=== PATIENT | female | born 1960 | race Caucasian/White ===

== ENCOUNTER → 2016-09-30 | Outpatient (CLI) | payer BC ==
--- NOTE | 2016-10-01 19:38 | Diagnostic Imaging Report ---
Bilateral screening mammogram The current study was also evaluated with a Computer Aided Detection (CAD) system. Indication: Screening. No current complaints stated on the questionnaire. COMPARISON: 04/30/11. FINDINGS: The breasts are composed of heterogeneously dense parenchyma which may decrease mammographic sensitivity. No mass, architectural distortion or suspicious cluster of calcification seen. Allowing for technique and positional differences, no suspicious change is seen. IMPRESSION: No significant change. ACR BI-RADS Category 2: Benign findings. Result letter will be mailed to the patient. Note: At least 10% of breast cancer is not imaged by mammography. Dictated by: Dictated on workstation # [id number]
== END ==
LOC: RAD 14:33
PROVIDERS: ATTEND Internal Medicine
DX: Z12.31 Encounter for screening mammogram for malignant neoplasm of breast (principal)
CPT/HCPCS: 77067

== ENCOUNTER 2019-05-02 15:56 | Inpatient (IN) | payer BC ==
[~2019-05-02] VITALS: Ht 162 cm; Wt 79.0 kg
[2019-05-02] VITALS (7 sets, daily range): BP systolic 129–166; BP diastolic 75–89
[2019-05-02] MEDS: NITROGLYCERIN 0.4 MG SL TABS BTL 25'S SL PRN ×2 (16:14→16:20)
[2019-05-02 16:18] LABS: BASOPHILS % (AUTO) 0 % (0-10); EOSINOPHILS # (AUTO) 0.2 10^3/uL (0.0-0.3); EOSINOPHILS % (AUTO) 2 % (0-10); HEMATOCRIT 42 % (35-52); HEMOGLOBIN 14.1 G/DL (11.5-16.0); LYMPHOCYTES # (AUTO) 1.8 X 10^3 (1.0-4.0); LYMPHOCYTES % (AUTO) 20 % (12-44); MEAN CORPUSCULAR HEMOGLOBIN 26 PG (25-34); MEAN CORPUSCULAR HGB CONC 34 G/DL (32-36); MEAN CORPUSCULAR VOLUME 79 FL (80-99); MEAN PLATELET VOLUME 9.9 FL (7.4-10.4); MONOCYTES # (AUTO) 0.6 X 10^3 (0.0-1.0); MONOCYTES % (AUTO) 6 % (0-12); NEUTROPHILS # (AUTO) 6.4 X 10^3 (1.8-7.8); NEUTROPHILS % (AUTO) 71 % (42-75); PLATELET COUNT 280 10^3/uL (130-400); RED CELL DISTRIBUTION WIDTH 13.7 % (10.0-14.5)
[2019-05-02] MEDS ORDERED: morphine INJ 10 MG/ML 1ML (SYR OR VIAL) IVP ONE (16:30)
[2019-05-02 16:36] LABS: ALANINE AMINOTRANSFERASE 19 U/L (0-55); ALBUMIN 4.7 GM/DL (3.2-4.5); ALKALINE PHOSPHATASE 104 U/L (40-136); BILIRUBIN,TOTAL 0.2 MG/DL (0.1-1.0); BUN/CREATININE RATIO 13; CARBON DIOXIDE 26 MMOL/L (21-32); CHLORIDE 104 MMOL/L (98-107); CREATININE SERUM 0.69 MG/DL (0.60-1.30); GFR ESTIMATED > 60; GLUCOSE 109 MG/DL (70-105); LIPASE 19 U/L (8-78); MAGNESIUM 1.8 MG/DL (1.6-2.4); POTASSIUM 3.5 MMOL/L (3.6-5.0); SODIUM 141 MMOL/L (135-145); TOTAL PROTEIN 7.8 GM/DL (6.4-8.2)
--- NOTE | 2019-05-02 16:36 | ED Chest Pain ---
General Chief Complaint: Chest Pain Stated Complaint: CHEST , ARM HURTING Nursing Triage Note: pt presents with cp that has been ongoing for 2-3 hours. pt states pain originates in L shoulder and radiates to the left arm and chest Nursing Sepsis Screen: No Definite Risk Source: patient Exam Limitations: no limitations History of Present Illness Date Seen by Provider: May 02, 2019 Time Seen by Provider: 15:57 Initial Comments With report of left sided chest pain that starts at the shoulder and radiates down the left arm and into the left chest. Onset about 2 hours prior to arrival. Denies nausea, vomiting, weakness, shortness of breath or sweating. Does have hypertension and notes that blood pressure is elevated currently. She states that she is not well controlled. Did have stress test that was okay four years ago or so. She did take 4 baby aspirin prior to arrival. 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 NTG SL BEEF FARMER: No Associated Symptoms: No abdominal pain, No back pain, No nausea/vomiting, No shortness of breath, No weakness Allergies and Home Medications Allergies Coded Allergies: No Known Drug Allergies (Unverified , 05/02/19) Patient Home Medication List Home Medication List Reviewed: Yes Review of Systems Review of Systems Constitutional: see HPI; No chills, No fever Respiratory: No Symptoms Reported Cardiovascular: See HPI, Chest Pain; Denies Lightheadedness, Denies Palpitations Gastrointestinal: Denies Diarrhea, Denies Nausea, Denies Vomiting Genitourinary: No Symptoms Reported Musculoskeletal: see HPI, muscle pain; No neck pain Skin: no symptoms reported Psychiatric/Neurological: Anxiety; Denies Headache All Other Systems Reviewed Negative Unless Noted: Yes Past Brblsev-Ssuxpy-Ibszsv Hx Past Med/Social Hx: Reviewed Nursing Past Med/Soc Hx Patient Social History Alcohol Use: Denies Use Recreational Drug Use: No Smoking Status: Never a Smoker Recent Foreign Travel: No Contact w/Someone Who Travel: No Recent Infectious Disease Expo: No Immunizations Up To Date Tetanus Booster (TDap): Unknown PED Vaccines UTD: Yes Past Medical History Surgeries: Yes Orthopedic, Tubal Ligation Respiratory: No Cardiac: Yes Hypertension Neurological: No : No Female Reproductive Disorders: 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 oz. kg; 30.00 BMI Method: General Appearance: No Apparent Distress, Anxious, Mild Distress HEENT: PERRL/EOMI, Pharynx Normal Neck: Non Tender, Supple Respiratory: Lungs Clear, Normal Breath Sounds Cardiovascular: No Murmur, Tachycardia Gastrointestinal: Non Tender, Soft Extremity: Normal Range of Motion, Non Tender Neurologic/Psychiatric: Alert, Oriented x3 Skin: Normal Color, Warm/Dry Progress/Results/Core Measures Results/Orders Lab Results Laboratory Tests Test 05/02/19 16:08 Range/Units White Blood Count 9.0 4.3-11.0 10^3/uL Red Blood Count 5.35 4.35-5.85 10^6/uL Hemoglobin 14.1 11.5-16.0 G/DL Hematocrit 42 35-52 % Mean Corpuscular Volume 79 L 80-99 FL Mean Corpuscular Hemoglobin 26 25-34 PG Mean Corpuscular Hemoglobin Concent 34 32-36 G/DL Red Cell Distribution Width 13.7 10.0-14.5 % Platelet Count 280 130-400 10^3/uL Mean Platelet Volume 9.9 7.4-10.4 FL Neutrophils (%) (Auto) 71 42-75 % Lymphocytes (%) (Auto) 20 12-44 % Monocytes (%) (Auto) 6 0-12 % Eosinophils (%) (Auto) 2 0-10 % Basophils (%) (Auto) 0 0-10 % Neutrophils # (Auto) 6.4 1.8-7.8 X 10^3 Lymphocytes # (Auto) 1.8 1.0-4.0 X 10^3 Monocytes # (Auto) 0.6 0.0-1.0 X 10^3 Eosinophils # (Auto) 0.2 0.0-0.3 10^3/uL Basophils # (Auto) 0.0 0.0-0.1 10^3/uL Prothrombin Time 12.5 12.2-14.7 SEC INR Comment 0.9 0.8-1.4 Activated Partial Thromboplast Time 26 24-35 SEC D-Dimer 0.31 0.00-0.49 UG/ML Sodium Level 141 135-145 MMOL/L Potassium Level 3.5 L 3.6-5.0 MMOL/L Chloride Level 104 98-107 MMOL/L Carbon Dioxide Level 26 21-32 MMOL/L Anion Gap 11 5-14 MMOL/L Blood Urea Nitrogen 9 7-18 MG/DL Creatinine 0.69 0.60-1.30 MG/DL Estimat Glomerular Filtration Rate > 60 BUN/Creatinine Ratio 13 Glucose Level 109 H 70-105 MG/DL Calcium Level 10.0 8.5-10.1 MG/DL Corrected Calcium 8.5-10.1 MG/DL Magnesium Level 1.8 1.6-2.4 MG/DL Total Bilirubin 0.2 0.1-1.0 MG/DL Aspartate Amino Transf (AST/SGOT) 17 5-34 U/L Alanine Aminotransferase (ALT/SGPT) 19 0-55 U/L Alkaline Phosphatase 104 40-136 U/L Myoglobin 166.0 H 10.0-92.0 NG/ML Troponin I 0.048 H <0.028 NG/ML Total Protein 7.8 6.4-8.2 GM/DL Albumin 4.7 H 3.2-4.5 GM/DL Lipase 19 8-78 U/L My Orders Orders - MEJIA NOGUERA MD Cbc With Automated Diff (05/02/19 16:08) Magnesium (05/02/19 16:08) Chest 1 View, Ap/Pa Only (05/02/19 16:08) Ekg Tracing (05/02/19 16:08) Comprehensive Metabolic Panel (05/02/19 16:08) Myoglobin Serum (05/02/19 16:08) Protime With Inr (05/02/19 16:08) Partial Thromboplastin Time (05/02/19 16:08) O2 (05/02/19 16:08) Monitor-Rhythm Ecg Trace Only (05/02/19 16:08) Lipid Panel (05/03/19 06:00) Ed Iv/Invasive Line Start (05/02/19 16:08) Lipase (05/02/19 16:08) Fibrin Degradation Products (05/02/19 16:08) Troponin I (05/02/19 16:08) Nitroglycerin 0.4 Mg Btl 25's (Nitrostat (05/02/19 16:15) Morphine Injection (Morphine Injection (05/02/19 16:30) Metoprolol Succinate (Xl) Tab (Toprol Xl (05/02/19 17:15) Ticagrelor Tablet (Brilinta Tablet) (05/02/19 17:15) Enoxaparin Injection (Lovenox Injection) (05/02/19 17:15) Nitroglycerin Ointment (Nitrobid Ointme (05/02/19 17:15) Medications Given in ED Current Medications Medications Dose Ordered Sig/Stephanie Route Start Time Stop Time Status Last Admin Dose Admin Enoxaparin Sodium 80 mg ONCE ONCE SC 05/02/19 17:15 05/02/19 17:16 DC 05/02/19 17:19 80 MG Nitroglycerin 0.4 mg UD PRN SL 05/02/19 16:15 05/02/19 16:20 0.4 MG Nitroglycerin 1 inch ONCE ONCE TOP 05/02/19 17:15 05/02/19 17:16 DC 05/02/19 17:19 1 INCH Ticagrelor 180 mg ONCE ONCE PO 05/02/19 17:15 05/02/19 17:16 DC 05/02/19 17:20 180 MG Vital Signs/I&O 05/02/19 05/02/19 15:57 15:57 Temp 36.9 Pulse 105 Resp 20 B/P (MAP) 196/96 (129) Pulse Ox 99 O2 Delivery Room Air Room Air Blood Pressure Mean: 129 Progress Progress Note : Progress Note Seen and evaluated. IV, labs, EKG and chest x-ray ordered. ASA held that she took that at home. After sublingual ordered. Morphine 2 mg IV ordered if needed. Monitor patient. 1710: Patient's troponin was slightly elevated as well as her myoglobin. Given her family history and hypertension, admission is indicated. Currently findings of non-ST elevation NH. I did discuss the case with Dr. Gaviria who accepts her for admission, inpatient status. I did discuss the case with Dr. Lozano. He is requesting Brilinta 180 mg by mouth now and 90 mg twice a day. We will initiate metoprolol 50 mg by mouth of the XL version. We will initiate Nitropaste 1 inch to chest wall continue every 6 hours. 2-D cardiac echo in the a.m. Nothing by mouth after midnight. I did discuss all the findings concerns with patient and family who agree with plan. Admit, inpatient status. Initial ECG Impression Date: May 02, 2019 Initial ECG Impression Time: 15:57 Initial ECG Rate: 99 Initial ECG Rhythm: S.Tach Comment Sinus with left ventricular hypertrophy and left atrial abnormality. No evidence of ST elevation NH. No previous available for comparison. Interpreted by me. Diagnostic Imaging Diagonstic Imaging: Xray Plain Films/CT/US/NM/MRI: chest Comments [facility], [place] NAME: VINAY GAMEZ [facility] REC#: [id number] PT STATUS: REG ER : 1960 PHYSICIAN: MEJIA NOGUERA MD ADMIT DATE: 05/02/19/ER Signed Date of Exam:05/02/19 CHEST 1 VIEW, AP/PA ONLY EXAMINATION: Chest 1 view HISTORY: Chest pain COMPARISON: None available. FINDINGS: The lungs are clear without edema or pneumonia. No pleural effusion or pneumothorax. Heart size is normal. IMPRESSION: 1. Clear lungs. Dictated by: Dictated on workstation # [id number] Dict: 05/02/19 1640 Trans: 05/02/19 1641 [facility] [id number] Interpreted by: PRANAY FORMAN MD Electronically signed by: PRANAY FORMAN MD 05/02/19 1641 Departure Communication (Admissions) Time/Spoke to Admitting Phy: 17:06 Time/Spoke to Consulting Phy: 17:10 Impression Primary Impression: NSTEMI (non-ST elevated myocardial infarction) Additional Impression: Chest pain Qualified Codes: R07.9 - Chest pain, unspecified Disposition: ADMITTED INPATIENT Condition: Stable Admissions Decision to Admit Reason: Admit from ER (General) Decision to Admit/Date: May 02, 2019 Time/Decision to Admit Time: 17:06 Departure-Patient Inst. Referrals: URBANO VERGARA MD (PCP/Family) Primary Care Physician MEJIA NOGUERA MD May 02, 2019 16:36
[2019-05-02 16:37] LABS: INR 0.9 (0.8-1.4); PROTHROMBIN TIME PATIENT 12.5 SEC (12.2-14.7)
--- NOTE | 2019-05-02 16:42 | Diagnostic Imaging Report ---
EXAMINATION: Chest 1 view HISTORY: Chest pain COMPARISON: None available. FINDINGS: The lungs are clear without edema or pneumonia. No pleural effusion or pneumothorax. Heart size is normal. IMPRESSION: 1. Clear lungs. Dictated by: Dictated on workstation # [id number]
[2019-05-02] MEDS ORDERED: ENOXAPARIN 80 MG/0.8 ML (LOVENOX) SYR SC ONE (17:15)
[2019-05-02] MEDS ORDERED: TICAGRELOR 90 MG TABLET (BRILINTA) PO ONE (17:15)
[2019-05-02] MEDS ORDERED: meTOproloL SUCCINATE 50 MG (TOPROL XL) TAB PO SCH (17:15)
[2019-05-02] MEDS ORDERED: NITROGLYCERIN 2% OINT 1 GM UNIT DOSE PACKET TOP ONE (17:15)
[2019-05-02] MEDS ORDERED: morphine INJ 4 MG/ML 1 ML (VIAL/SYRINGE) IV PRN (18:30)
[2019-05-02] MEDS ORDERED: CATHETER FLUSH 10 ML SYR IV PRN (18:30)
[2019-05-02] MEDS ORDERED: NITROGLYCERIN 0.4 MG SL TABS BTL 25'S SL PRN (18:30)
[2019-05-02] MEDS ORDERED: ONDANSETRON 4 MG/2 ML (SDV) Z0FRAN IV PRN ×2 (18:30)
[2019-05-02] MEDS: LACTATED RINGERS 1,000 ML IV SCH (19:21)
[2019-05-02] MEDS ORDERED: FLU QUADRIvalent (5+ YOA) 2019-2020 (AFLURIA) 0.5 ML IM ONE (19:30)
[2019-05-02] MEDS ORDERED: NITROGLYCERIN 2% OINT 1 GM UNIT DOSE PACKET ONE (20:49)
[2019-05-02] MEDS: TICAGRELOR 90 MG TABLET (BRILINTA) PO SCH (20:57)
[2019-05-03] VITALS (12 sets, daily range): BP systolic 134–174; BP diastolic 69–92
[2019-05-03] MEDS: NITROGLYCERIN 2% OINT 1 GM UNIT DOSE PACKET TOP SCH ×3 (00:05→12:00)
[2019-05-03 00:30] LABS: BASOPHILS % (AUTO) 0 % (0-10); EOSINOPHILS # (AUTO) 0.3 10^3/uL (0.0-0.3); EOSINOPHILS % (AUTO) 4 % (0-10); HEMATOCRIT 38 % (35-52); HEMOGLOBIN 12.5 G/DL (11.5-16.0); LYMPHOCYTES % (AUTO) 27 % (12-44); MEAN CORPUSCULAR HEMOGLOBIN 26 PG (25-34); MEAN CORPUSCULAR HGB CONC 33 G/DL (32-36); MEAN CORPUSCULAR VOLUME 79 FL (80-99); MEAN PLATELET VOLUME 9.9 FL (7.4-10.4); MONOCYTES # (AUTO) 0.5 X 10^3 (0.0-1.0); MONOCYTES % (AUTO) 7 % (0-12); NEUTROPHILS # (AUTO) 4.5 X 10^3 (1.8-7.8); NEUTROPHILS % (AUTO) 62 % (42-75); PLATELET COUNT 257 10^3/uL (130-400); RED CELL DISTRIBUTION WIDTH 13.7 % (10.0-14.5); WHITE BLOOD COUNT 7.2 10^3/uL (4.3-11.0)
[2019-05-03 01:02] LABS: ALANINE AMINOTRANSFERASE 16 U/L (0-55); ALBUMIN 3.8 GM/DL (3.2-4.5); ALKALINE PHOSPHATASE 93 U/L (40-136); BILIRUBIN,TOTAL 0.4 MG/DL (0.1-1.0); BUN/CREATININE RATIO 14; CALCIUM 9.1 MG/DL (8.5-10.1); CARBON DIOXIDE 24 MMOL/L (21-32); CHLORIDE 105 MMOL/L (98-107); CHOLESTEROL 184 MG/DL (< 200); CREATININE SERUM 0.65 MG/DL (0.60-1.30); GFR ESTIMATED > 60; GLUCOSE 137 MG/DL (70-105); HDL CHOLESTEROL 46 MG/DL (40-60); POTASSIUM 3.2 MMOL/L (3.6-5.0); SODIUM 138 MMOL/L (135-145); TOTAL PROTEIN 6.3 GM/DL (6.4-8.2); TRIGLYCERIDES 191 MG/DL (<150); VLDL CHOLESTEROL 38 MG/DL (5-40)
--- NOTE | 2019-05-03 01:51 | NUR ---
ATTEMPTED CONTACTING DR. CRUZ AT 0139, 0140, AND 0141 WITH NO RESPONSE. WILL CONTINUE TRYING TO CONTACT HIM TO REPORT CRITICAL LAB VALUE OF TROPONIN.
[2019-05-03] MEDS: LACTATED RINGERS 1,000 ML IV SCH ×3 (04:15→16:15)
--- NOTE | 2019-05-03 05:18 | NUR ---
DR. CRUZ NOTIFIED OF PT'S TROPONIN LAB AT 0306 - NO NEW ORDERS
[2019-05-03] MEDS ORDERED: HEParin (CATH LAB) 2,000 ML IV ONE (08:03)
[2019-05-03] MEDS ORDERED: LIDOCAINE 1% INJ 20 ML 20 ML VIAL ONE (08:03)
[2019-05-03] MEDS: TICAGRELOR 90 MG TABLET (BRILINTA) PO SCH ×2 (08:40→20:24)
[2019-05-03] MEDS ORDERED: HYDROcodone/APAP 5 MG/325 MG (LORTAB) TAB PO PRN (08:45)
[2019-05-03] MEDS ORDERED: ASPIRIN E.C. 81 MG (ECOTRIN) TAB PO SCH (09:00)
[2019-05-03] MEDS ORDERED: ASPI-983 PO (10:41)
[2019-05-03] MEDS ORDERED: NF-LT10/20 PO (10:41)
--- NOTE | 2019-05-03 10:42 | NUR ---
SPOKE WITH THE PATIENT ABOUT HER MEDICATIONS. SHE LISTED HER MEDS. I COMPARED WITH THE EXT MED HX AND CALLED [facility] TO VERIFY THE AMLODIPINE BENAZEPRIL 10-20 HAS NOT BEEN FILLED SINCE 12-07-18 #90. WHEN I ASKED HER ABOUT THIS SHE STATES SHE IS GETTING LOW BUT SHE DOES NOT FEEL SHE MISSES THIS OFTEN. I NOTED THE PAST DUE FILL DATE ON THE MED REC. SHE TAKES ASPIRIN 81MG DAILY OTC.
--- NOTE | 2019-05-03 10:59 | NUR ---
Pt is Bahai. Technical Analyst provided prayer and Communion.
[2019-05-03] MEDS ORDERED: MIDAZOLAM 5 MG/5 ML (VERSED) VIAL ONE (11:15)
[2019-05-03] MEDS ORDERED: fentaNYL INJECTION 100 MCG/2 ML AMP ONE (11:16)
[2019-05-03] MEDS ORDERED: NITRO DRIP 25000 MCG/D5W 250 ML IV ONE (11:16)
[2019-05-03] MEDS ORDERED: VERAPAMIL 5 MG/2 ML (CALAN) VIAL IV ONE (11:16)
[2019-05-03] MEDS ORDERED: HEParin 1000 UNIT/ML (10ML VIAL) FOR BOLUS ONE (11:16)
[2019-05-03] MEDS ORDERED: NS IV 1000 ML 1,000 ML ONE (11:37)
[2019-05-03] MEDS ORDERED: ADENOSINE 3 MG/1 ML (ADENOSCAN) 30ML VIAL IV ONE (12:01)
[2019-05-03] MEDS ORDERED: PATIENT MAY USE OWN MEDS, ALL PO SCH (13:00)
--- NOTE | 2019-05-03 13:00 | Cardiac Procedure Note-CS/ASA ---
Pre-Procedure Note Pre-Op Procedure Note H&P Reviewed The H&P was reviewed, patient examined and no changes noted. Date H&P Reviewed: May 03, 2019 Time H&P Reviewed: 11:00 Conscious Sedation Pre-Proced Time 11:00 ASA Score 3 For ASA 3 and 4: Consider anesthesia and medical clearance. Also, for patients with a history of failed moderate sedation consider anesthesia. Airway Lungs Heart ASA score ASA 1: a normal healthy patient ASA 2: a patient with a mild systemic disease (mid diabetes, controlled hypertension, obesity ASA 3: a patient with a severe systemic disease that limits activity (angina, COPD, prior Myocardial infarction) ASA 4: a patient with an incapacitating disease that is a constant threat to life (CHF, renal failure) ASA 5: a moribund patient not expected to survive 24 hrs. (ruptured aneurysm) ASA 6: a declared brain- patient whose organs are being harvested. For emergent operations, add the letter E after the classification Mallampati Classification Grade 1 Sedation Plan Analgesia, Amnesia, Plan communicated to team members, Discussed options with patient/fam, Discussed risks with patient/fam The patient is an appropriate candidate to undergo the planned procedure, sedation, and anesthesia. The patient immediately re-assessed prior to indication. Hoa CRUZ MD May 03, 2019 13:00
--- NOTE | 2019-05-03 13:00 | Consultation-Cardiology ---
HPI-Cardiology Cardiology Consultation: Date of Consultation 05/03/19 Date of Admission Attending Physician Jayla Gaviria MD Admitting Physician Garry Salmeron MD Consulting Physician Hoa LOZANO MD HPI: Time Seen by a Provider: 08:45 Chief Complaint: Chest pain This is a 58-year-old lady with history of hypertension. She denies active smoking. She has family history of premature CAD. She presented to the ER with complains of chest pain radiating to the left arm. Moderate to severe intensity. No associated cardiac symptoms. Substernal. Tightness, pressure. Resolved with nitroglycerin. No exacerbating factors. No other medical issues. Review of Systems-Cardiology Review of Systems Constitutional: As described under HPI; No As described under HPI, No no symptoms reported, No chills, No fever, No lightheadedness Eyes: No As described under HPI, No no symptoms reported, No blindness, No blurred vision, No contact lenses, No drainage, No decreased acuity, No foreign body sensation, No pain, No vision change Ears/Nose/Throat: No As described under HPI, No no symptoms reported, No chronic hearing loss, No ear discharge, No ear pain, No nasal drainage, No ulcerations Respiratory: No no symptoms reported; As described under HPI; No As described under HPI, No cough, No orthopnea, No shortness of breath, No SOB with excertion Cardiovascular: No no symptoms reported; As described under HPI; No As described under HPI; chest pain; No edema, No irregular heart rate, No lightheadedness, No palpitations Gastrointestinal: No no symptoms reported, No As described under HPI, No abdomen distended, No abdominal pain, No blood streaked bowels, No constipation, No diarrhea, No nausea, No vomiting, No stool coloration changes Genitourinary: No As described under HPI, No burning, No dysuria, No discharge, No frequency, No flank pain, No hematuria, No urgency : Yes : No Skin: No rash, No skin related problems, No ulcerations Psychiatric/Neurological: No anxiety, No depression, No seizure, No focal weakness, No syncope Hematologic: No bleeding abnormalities All Other Systems Reviewed Negative Unless Noted: Yes HDY-Jsoxyq-Iusobn Hx Patient Social History Alcohol Use: Denies Use Recreational Drug Use: No Smoking Status: Never a Smoker Recent Foreign Travel: No Recent Infectious Disease Expo: No Hospitalization with Isolation: Denies Immunizations Up To Date Tetanus Booster (TDap): Unknown Past Medical History PMH As described under Assessment. Allergies and Home Medications Allergies Coded Allergies: No Known Drug Allergies (Unverified , 05/02/19) Home Medications Amlodipine/Benazepril 1 Cap Cap, 1 CAP PO DAILY, (Reported) LAST FILLED #90 9-4-19 Aspirin 81 Mg Tablet.dr, 81 MG PO DAILY, (Reported) Patient Home Medication List Home Medication List Reviewed: Yes Physical Exam-Cardiology Physical Exam Vital Signs/I&O 05/03/19 05/03/19 05/03/19 05/03/19 06:40 07:53 08:00 13:30 Pulse 69 72 73 Resp 14 11 B/P (MAP) 156/81 (106) 150/77 (101) Pulse Ox 100 100 98 O2 Delivery Room Air Room Air Room Air 05/03/19 00:00 Intake Total 300 ml Balance 300 ml Capillary Refill : Less Than 3 Seconds Constitutional: appears stated age, AAO x 3; No apparent distress; well- developed, well-nourished HEENT: PERRL; No discharge; hearing is well preserved, oral hygience is good; No ulceration, No xanthelasmas are seen Neck: No carotid bruit; carotid pulses are 2 + bilaterally Respiratory: chest is bilaterally symmetric, lungs clear to auscultation Cardiovascular: regular rate-rhythm, S1 and S2 Gastrointestinal: soft, audible bowel sounds; No spleenomegaly Rectal: deferred Extremities: normal range of motion, non-tender, normal inspection; No clubbing, No cyanosis; no lower extremity edema bilateral; No significant edema Neurologic/Psychiatric: no motor/sensory deficits, alert, normal mood/affect, oriented x 3, power is 5/5 both on sides Skin: normal color; No rash, No ulcerations Data Review Labs Laboratory Tests 05/02/19 16:08: White Blood Count 9.0, Red Blood Count 5.35, Hemoglobin 14.1, Hematocrit 42, Mean Corpuscular Volume 79L, Mean Corpuscular Hemoglobin 26, Mean Corpuscular Hemoglobin Concent 34, Red Cell Distribution Width 13.7, Platelet Count 280, Mean Platelet Volume 9.9, Neutrophils (%) (Auto) 71, Lymphocytes (%) (Auto) 20, Monocytes (%) (Auto) 6, Eosinophils (%) (Auto) 2, Basophils (%) (Auto) 0, Neutrophils # (Auto) 6.4, Lymphocytes # (Auto) 1.8, Monocytes # (Auto) 0.6, Eosinophils # (Auto) 0.2, Basophils # (Auto) 0.0, Prothrombin Time 12.5, INR Comment 0.9, Activated Partial Thromboplast Time 26, D-Dimer 0.31, Sodium Level 141, Potassium Level 3.5L, Chloride Level 104, Carbon Dioxide Level 26, Anion Gap 11, Blood Urea Nitrogen 9, Creatinine 0.69, Estimat Glomerular Filtration Rate > 60, BUN/Creatinine Ratio 13, Glucose Level 109H, Calcium Level 10.0, Corrected Calcium , Magnesium Level 1.8, Total Bilirubin 0.2, Aspartate Amino Transf (AST/SGOT) 17, Alanine Aminotransferase (ALT/SGPT) 19, Alkaline Phosphatase 104, Myoglobin 166.0H, Troponin I 0.048H, Total Protein 7.8, Albumin 4.7H, Lipase 19 05/02/19 18:53: Troponin I 1.317*H 05/03/19 00:20: White Blood Count 7.2, Red Blood Count 4.75, Hemoglobin 12.5, Hematocrit 38, Mean Corpuscular Volume 79L, Mean Corpuscular Hemoglobin 26, Mean Corpuscular Hemoglobin Concent 33, Red Cell Distribution Width 13.7, Platelet Count 257, Mean Platelet Volume 9.9, Neutrophils (%) (Auto) 62, Lymphocytes (%) (Auto) 27, Monocytes (%) (Auto) 7, Eosinophils (%) (Auto) 4, Basophils (%) (Auto) 0, Neutrophils # (Auto) 4.5, Lymphocytes # (Auto) 2.0, Monocytes # (Auto) 0.5, Eosinophils # (Auto) 0.3, Basophils # (Auto) 0.0, Sodium Level 138, Potassium Level 3.2L, Chloride Level 105, Carbon Dioxide Level 24, Anion Gap 9, Blood Urea Nitrogen 9, Creatinine 0.65, Estimat Glomerular Filtration Rate > 60, BUN/Creatinine Ratio 14, Glucose Level 137H, Calcium Level 9.1, Corrected Calcium 9.3, Total Bilirubin 0.4, Aspartate Amino Transf (AST/SGOT) 34, Alanine Aminotransferase (ALT/SGPT) 16, Alkaline Phosphatase 93, Troponin I 4.157*H, Total Protein 6.3L, Albumin 3.8, Triglycerides Level 191H, Cholesterol Level 184, LDL Cholesterol Direct 129, VLDL Cholesterol 38, HDL Cholesterol 46 ECG Impression ECG Initial ECG Rhythm: Normal Sinus Comment T-wave inversions noted in V5 and V6. A/P-Cardiology Assessment/Admission Diagnosis Non-STEMI, Hypertension Plan Non-STEMI, positive cardiac enzymes. EKG shows sinus rhythm with some T-wave inversions. Echocardiogram. Aspirin, Brilinta bolus given in the ER. Lovenox dose given in the ER. I discussed at length with the patient and recommended coronary angiography. 1-2 percent of serious complications. Informed consent w as taken. We will perform coronary angiography today. Hypertension: Will require DEBBIE inhibitor and beta venita. Thank you for your consultation. Please call me if you have any questions. Travon Lozano MD, FACP, FACC, FSCAI, FHRS, CCDS Interventional Cardiology Cardiac Electrophysiology Vascular Medicine and Endovascular Interventions Clinical Quality Measures AMI/AHF: ASA po Prior to arrival: Yes DVT/VTE Risk/Contraindication: Risk Factor Score Per Nursin RFS Level Per Nursing on Admit: 1=Low/No VTE PPX Hoa LOZANO MD May 03, 2019 13:00
--- NOTE | 2019-05-03 13:00 | Coronary Angiography & PCI ---
Coronary Angiography & PCI DATE OF PROCEDURE: 05/03/19 INDICATION: Non-STEMI. PREOPERATIVE DIAGNOSIS: Non-STEMI. POSTOPERATIVE DIAGNOSIS: Severe two-vessel CAD. Successful PCI to the LAD and OM1. HISTORY: This is a 58-year-old lady with non-STEMI. Therefore, the patient was scheduled for coronary angiography. PROCEDURES PERFORMED: 1.Coronary angiography. 2.Left heart catheterization. 3.FFR to the LAD. 4. PCI to the LAD with drug-eluting stent. 5. PCI to OM1 with drug-eluting stent. COMPLICATIONS: None. SPECIMENS: None. ESTIMATED BLOOD LOSS: 10 mL ANESTHESIA: Conscious sedation ANTICOAGULATION: IV heparin CONTRAST: 135 mL. FLUOROSCOPY: 15.1 minutes. FLOUROSCOPY DOSE: 691 mgy. PROCEDURE DETAILS: The patient is a 58 female and was brought to the yard laborer after informed consent was taken. All the risks and complications were explained in detail; this included the risk of bleeding, vascular damage, stroke, MO and even . The patient was draped and prepped in the usual sterile fashion. Access was gained in the right radial artery with a 6 [place] sheath. Coronary angiography and left heart catheterization was performed with the Roebling catheter. FINDINGS: 1.Left main: Patent. 2.LAD: Moderate to severe long stenosis in the mid LAD. 3.Left circumflex artery: Severe long stenosis in the proximal midsegment of OM1. 4.RCA: Patent. 5.Left heart catheterization: LV pressure 150/6 mmHg. LVEDP 15 mmHg. Aortic pressure 126/26 mmHg. No significant gradient across the aortic valve. Normal LV function with no wall motion abnormality. RECOMMENDATIONS: FFR to the LAD is recommended. PCI to the LAD is recommended. PCI to the OM1 is recommended. INTERVENTION DETAILS: EBU 3.5 guide catheter, FFR guidewire, IV heparin for anticoagulation. 8000 units of heparin was given. Patient was given bolus Brilinta and aspirin. The lesion in the mid LAD was crossed with a FFR wire. Baseline FFR was 0.94. Adenosine was started at 140 g per KG per minute. Lowest FFR was 0.80 which is significant therefore PCI is recommended. We took a Xience Quita 2.75 x 33 mm drug-eluting stent and placed it at 14 ny for 21 seconds. Postdilatation with the same stent balloon after pulling in the proximal and mid segment was done at 20 ny for 13 seconds. Postdilatation with an C Quantum 3.5 x 1 2 mm in the midsegment at 14 ny for 11 seconds and in the proximal segment at 18 ny for 8 seconds. Excellent results with STEVEN 3 flow and no residue stenosis. The same FFR wire was then advanced into the OM1 vessel. The tip of the wire was placed in the distal OM1. Direct stenting with a Xience Quita 3 x 38 mm stent at 16 ny for 7 seconds. Postdilatation with an NC Quantum 3.5 x 20 mm at 18 ny for 8 seconds in the midsegment. 2 inflations in the proximal segment at 20 ny for 6 seconds and 20 ny for 5 seconds. Excellent results with no residual stenosis and STEVEN-3 flow. Patient tolerated procedure well did not have any complication. CONCLUSIONS: 1. Severe two-vessel CAD, status post drug-eluting stents to the mid LAD and OM 1 artery. 2. Dual antiplatelet therapy for at least 1 year. 3. Aggressive secondary prevention measures. Travon Lozano MD, FACP, FACC, [facility] Interventional Cardiology Hoa LOZANO MD May 03, 2019 13:00
--- NOTE | 2019-05-03 13:41 | History & Physical-Hospitalist ---
History of Present Illness HPI/Chief Complaint he should've a 58-year-old female with past medical history of poorly controlled hypertension who presented to the emergency department due to chest pain. She states she was walking her grandchild when she developed left arm pain. She thought it was due to muscle strain but it continued to worsen and she developed chest pain and back pain. When her daughter arrived at the house she relayed this concerns to her and then decided to seek care in the ER. She denies any shortness of breath. She was given Nitro which helped resolve her symptoms. She was found to have an elevated troponin at 0.04 and was admitted for an NSTEMI. Date Seen 05/03/19 Time Seen by a Provider: 07:55 Attending Physician Jayla Hansen MD PCP Garry Salmeron MD Referring Physician Date of Admission May 02, 2019 at 17:17 Home Medications & Allergies Home Medications Reviewed patient Home Medication Reconciliation performed by pharmacy medication reconciliations optics manufacturing technician and/or nursing. Patients Allergies have been reviewed. Allergies Allergies Coded Allergies No Known Drug Allergies (Unverified05/02/19) Past Shgcdbj-Tqhkzz-Akgnxl Hx Past Med/Social Hx: Reviewed Nursing Past Med/Soc Hx Patient Social History Marrital Status: Alcohol Use: Denies Use Recreational Drug Use: No Smoking Status: Never a Smoker Recent Foreign Travel: No Contact w/other who traveled: No Recent Infectious Disease Expo: No Immunizations Up To Date Tetanus Booster (TDap): Unknown Pediatric: Yes Past Medical History Surgeries: Section, Orthopedic, Tubal Ligation Cardiac: Hypertension : No Female Reproductive Disorders: Menstrual Problems Tubal Ligation Cancer: Skin Psychosocial: Anxiety History of Blood Disorders: No Adverse Reaction to Blood Akhtar: No Family History Reviewed Nursing Family Hx Heart Disease, CAD Over 55 Years Old, Hypertension Review of Systems Constitutional: No chills, No fever EENTM: no symptoms reported Respiratory: No dyspnea on exertion, No short of breath Cardiovascular: see HPI, chest pain Gastrointestinal: no symptoms reported Genitourinary: no symptoms reported Musculoskeletal: no symptoms reported Skin: no symptoms reported Psychiatric/Neurological: No Symptoms Reported Physical Exam Physical Exam Vital Signs Vital Signs - First Documented 05/02/19 15:57 Temp 36.9 Pulse 105 Resp 20 B/P (MAP) 196/96 (129) Pulse Ox 99 O2 Delivery Room Air Capillary Refill : Less Than 3 Seconds Height, Weight, BMI Height: '" Weight: lbs. oz. kg; 30.00 BMI Method: General Appearance: No Apparent Distress, WD/WN HEENT: Moist Mucous Membranes; No Scleral Icterus (L), No Scleral Icterus (R) Neck: Normal Inspection, Supple Respiratory: Lungs Clear, No Respiratory Distress Cardiovascular: Regular Rate, Rhythm, No Murmur Gastrointestinal: Normal Bowel Sounds, Non Tender, Soft Extremity: No Calf Tenderness, No Pedal Edema Neurologic/Psychiatric: Alert, Oriented x3, Normal Mood/Affect Skin: Normal Color, Warm/Dry Results Results/Procedures Labs Laboratory Tests 05/02/19 16:08 05/03/19 00:20 Patient resulted labs reviewed. Imaging: Reviewed Imaging Report Imaging CHEST 1 VIEW, AP/PA ONLY EXAMINATION: Chest 1 view HISTORY: Chest pain COMPARISON: None available. FINDINGS: The lungs are clear without edema or pneumonia. No pleural effusion or pneumothorax. Heart size is normal. IMPRESSION: 1. Clear lungs. Assessment/Plan Admission Diagnosis NSTEMI Admission Status: Inpatient Order (span 2 midnights) Reason for Inpatient Admission: NSTEMI, needs cath and further cardiac work up Assessment and Plan NSTEMI HTN Improved with nitro Occurred at rest Concerning for unstable angina troponin elevated overnight Plan for cardiac cath today Cardiology consulted, appreciate recs Hypokalemia Replace per protocol Diagnosis/Problems Diagnosis/Problems (1) Unstable angina Status: Acute (2) NSTEMI (non-ST elevated myocardial infarction) Status: Acute (3) Chest pain Status: Acute Qualifiers: Chest pain type: unspecified Qualified Codes: R07.9 - Chest pain, unspecified Clinical Quality Measures AMI/AHF: ASA po Prior to arrival: Yes DVT/VTE Risk/Contraindication: Risk Factor Score Per Nursin RFS Level Per Nursing on Admit: 1=Low/No VTE PPX JAYLA HANSEN MD May 03, 2019 13:41
[2019-05-03] MEDS: NS IV 1000 ML 1,000 ML IV SCH ×2 (15:35→23:11)
[2019-05-03] MEDS: meTOproloL SUCCINATE 50 MG (TOPROL XL) TAB PO SCH (15:40)
[2019-05-04] VITALS: BP 154/91
[2019-05-04 04:08] LABS: HEMOGLOBIN 13.7 G/DL (11.5-16.0); RED CELL DISTRIBUTION WIDTH 13.4 % (10.0-14.5); WHITE BLOOD COUNT 7.6 10^3/uL (4.3-11.0)
[2019-05-04 04:20] VITALS: BP 151/85
[2019-05-04 04:53] LABS: BUN/CREATININE RATIO 14; CALCIUM 9.5 MG/DL (8.5-10.1); CARBON DIOXIDE 20 MMOL/L (21-32); CHLORIDE 105 MMOL/L (98-107); CREATININE SERUM 0.65 MG/DL (0.60-1.30); GFR ESTIMATED > 60; GLUCOSE 109 MG/DL (70-105); MAGNESIUM 1.9 MG/DL (1.6-2.4); PHOSPHORUS 3.8 MG/DL (2.3-4.7); POTASSIUM 3.9 MMOL/L (3.6-5.0); SODIUM 137 MMOL/L (135-145)
[2019-05-04] MEDS ORDERED: MAGNESIUM 1 GM/100 ML IVPB 100 ML IV SCH (06:00)
[2019-05-04] MEDS ORDERED: POTASSIUM CL 10MEQ/50ML IVPB 50 ML IV SCH ×2 (06:00)
[2019-05-04] MEDS ORDERED: KCL 20 MEQ TAB (K-DUR) PO SCH ×2 (06:00)
[2019-05-04 08:00] VITALS: BP 140/79
--- NOTE | 2019-05-04 08:57 | Discharge Summary ---
Diagnosis/Chief Complaint Date of Admission May 02, 2019 at 17:17 Date of Discharge Admission Diagnosis NSTEMI Primary Care Edson Heck MD Discharge Diagnosis (1) Unstable angina Status: Acute (2) NSTEMI (non-ST elevated myocardial infarction) Status: Acute (3) Chest pain Status: Acute Discharge Summary Procedures/Consulations Dr. Lozano - etiology Discharge Physical Exam Allergies: Coded Allergies: No Known Drug Allergies (Unverified , 05/02/19) Vitals & I&Os Vital Signs Date Time Temp Pulse Resp B/P (MAP) Pulse Ox O2 Delivery O2 Flow Rate FiO2 05/04/19 12:33 36.1 05/04/19 08:00 82 140/79 (99) Room Air 05/04/19 04:20 18 96 General Appearance: No Apparent Distress, WD/WN Respiratory: Lungs Clear, No Respiratory Distress Cardiovascular: Regular Rate, Rhythm, No Murmur Gastrointestinal: Normal Bowel Sounds, Soft Neurologic/Psychiatric: Alert, Oriented x3 Hospital Course Patient was admitted due to chest pain and elevated troponin. She was found to have in STEMI with a rise in her troponin up to 4. She underwent emergent cardiac catheter which revealed a lesion in the OM1 and LAD with successful PCI and stent placement. She was started on dual antiplatelets therapy. Her symptoms resolved and she was discharged home in stable condition. She is follow-up with her primary care physician Dr. Heck in the next week and with Dr. Lozano in the next 2 weeks. Labs (last 24 hrs) Laboratory Tests 05/04/19 03:50: White Blood Count 7.6, Red Blood Count 5.22, Hemoglobin 13.7, Hematocrit 42, Mean Corpuscular Volume 80, Mean Corpuscular Hemoglobin 26, Mean Corpuscular Hemoglobin Concent 33, Red Cell Distribution Width 13.4, Platelet Count 253, Mean Platelet Volume 10.0, Sodium Level 137, Potassium Level 3.9, Chloride Level 105, Carbon Dioxide Level 20L, Anion Gap 12, Blood Urea Nitrogen 9, Creatinine 0.65, Estimat Glomerular Filtration Rate > 60, BUN/Creatinine Ratio 14, Glucose Level 109H, Calcium Level 9.5, Phosphorus Level 3.8, Magnesium Level 1.9 Patient resulted labs reviewed. Pending Labs Imaging: Reviewed Imaging Report Discussion & Recommendations Discharge Planning: <30 minutes discharge planning Discharge Home Medications: Active Scripts Active Lisinopril 20 Mg Tablet 20 Mg PO DAILY Brilinta (Ticagrelor) 90 Mg Tablet 90 Mg PO BID Atorvastatin Calcium 80 Mg Tablet 80 Mg PO HS Metoprolol Succinate 50 Mg Tab.er.24h 50 Mg PO DAILY Reported Aspirin EC (Aspirin) 81 Mg Tablet.dr 81 Mg PO DAILY Instructions to patient/family Please see electronic discharge instructions given to patient. Clinical Quality Measures AMI/AHF: ASA po Prior to arrival: Yes DVT/VTE Risk/Contraindication: Risk Factor Score Per Nursin RFS Level Per Nursing on Admit: 1=Low/No VTE PPX Copy Copies To 1: EDSON HECK MD Problem Qualifiers (1) Chest pain: Chest pain type: unspecified Qualified Codes: R07.9 - Chest pain, unspecified DANIELLE HANSEN MD May 04, 2019 08:57
[2019-05-04] MEDS ORDERED: ASPIRIN E.C. 81 MG (ECOTRIN) TAB PO SCH (09:00)
[2019-05-04] MEDS ORDERED: lisINopril 40 MG (PRINIVIL) TABLET PO SCH (09:00)
[2019-05-04] MEDS ORDERED: LISI-552 PO (09:04)
[2019-05-04] MEDS ORDERED: METO50TA7 PO (09:04)
[2019-05-04] MEDS ORDERED: TICA90TA PO (09:04)
[2019-05-04] MEDS ORDERED: ATOR80TA76 PO (09:04)
--- NOTE | 2019-05-04 09:07 | Discharge Inst-Simple/Standard ---
Discharge Inst-Standard Patient Instructions/Follow Up Plan of Care/Instructions/FU: Please continue to take your medications as written. Please follow up with Dr Salmeron in the next week and with Dr Lozano in 2 weeks. Activity as Tolerated: Yes Discharge Diet: Cardiac Diet Return to The Hospital For: Chest pain, shortness of breath, racing heart, if you feel you are getting worse. DANIELLE HANSEN MD May 04, 2019 09:07
[2019-05-04] MEDS: NS IV 1000 ML 1,000 ML IV SCH (11:05)
[2019-05-04] MEDS: TICAGRELOR 90 MG TABLET (BRILINTA) PO SCH (11:09)
[2019-05-04] MEDS: meTOproloL SUCCINATE 50 MG (TOPROL XL) TAB PO SCH (11:09)
--- NOTE | 2019-05-04 11:35 | NUR ---
PT DISCHARGED VIA W/C TO PRIVATE VEHICLE TO HOME WITH NO DIFFICULTIES. SHE VOICES NO FURTHER QUESTIONS OR CONCERNS. ALL D/C INFORMATION AND F/U APPOINTMENTS GIVEN TO PATIENT. ALL PERSONAL BELONGINGS TAKEN BY .
--- NOTE | 2019-05-04 11:36 | NUR ---
provided prayer and Communion.
--- NOTE | 2019-05-04 13:31 | Cardiology Progress Note ---
Cardiology SOAP Progress Note Subjective: No further chest pain. Objective: I&O/Vital Signs 05/04/19 05/04/19 05/04/19 05/04/19 04:20 07:00 08:00 12:33 Temp 36.8 36.1 Pulse 72 77 82 Resp 18 B/P (MAP) 151/85 (107) 140/79 (99) Pulse Ox 96 O2 Delivery Room Air Room Air 05/04/19 00:00 Intake Total 350 ml Balance 350 ml Constitutional: appears stated age, AAO x 3; No apparent distress; well- developed, well-nourished Respiratory: chest is bilaterally symmetric, lungs clear to auscultation Cardiovascular: regular rate-rhythm, S1 and S2, systolic murmur Gastrointestional: soft, audible bowel sounds; No spleenomegaly Extremities: normal range of motion, non-tender, normal inspection; No clubbing, No cyanosis; no lower extremity edema bilateral; No significant edema Neurologic/Psychiatric: no motor/sensory deficits, alert, normal mood/affect, oriented x 3, power is 5/5 both on sides Skin: normal color; No rash, No ulcerations Results/Procedures: Labs Laboratory Tests 05/04/19 03:50: White Blood Count 7.6, Red Blood Count 5.22, Hemoglobin 13.7, Hematocrit 42, Mean Corpuscular Volume 80, Mean Corpuscular Hemoglobin 26, Mean Corpuscular Hemoglobin Concent 33, Red Cell Distribution Width 13.4, Platelet Count 253, Mean Platelet Volume 10.0, Sodium Level 137, Potassium Level 3.9, Chloride Level 105, Carbon Dioxide Level 20L, Anion Gap 12, Blood Urea Nitrogen 9, Creatinine 0.65, Estimat Glomerular Filtration Rate > 60, BUN/Creatinine Ratio 14, Glucose Level 109H, Calcium Level 9.5, Phosphorus Level 3.8, Magnesium Level 1.9 A/P: Assessment/Dx: Non-STEMI, Hypertension, [id number] aortic stenosis Plan: Non-STEMI, positive cardiac enzymes. EKG shows sinus rhythm with some T-wave inversions. Echocardiogram. Aspirin, Brilinta bolus given in the ER. Moderate to severe LAD stenosis, FFR 0.80 therefore one drug-eluting stent placed. Severe stenosis in OM1 treated successfully with a drug-eluting stent. Dual antiplatelet therapy for at least 1 year. Hypertension: Start DEBBIE inhibitor and beta venita. Ex Hyperlipidemia: High-dose statin therapy. Byuf-au-[id number] aortic stenosis: Continue to follow. Echocardiogram done 05/03/2019 shows normal LV function with no wall motion abnormalities. Mild to moderate aortic stenosis. Aortic valve area 1.4 cm. Mean gradient 21 mmHg. Thank you for your consultation. Please call me if you have any questions. Travon Lozano MD, FACP, FACC, FSCAI, FHRS, CCDS Interventional Cardiology Cardiac Electrophysiology Vascular Medicine and Endovascular Interventions Clinical Quality Measures AMI/AHF: ASA po Prior to arrival: Yes Hoa LOZANO MD May 04, 2019 13:31
== END 2019-05-04 11:35 | disposition home or self-care (01) | DRG 247 ==
LOC: EDUNIT# 15:56 → ER 15:57 → ICU 17:17
PROVIDERS: ADMIT Family Medicine; ATTEND Family Medicine
PROC: 027135Z Dilation of Coronary Artery, Two Arteries with Two Drug-eluting Intraluminal Devices, Percutaneous Approach (ICD-10-PCS; principal; 2019-05-03)
PROC: 4A023N7 Measurement of Cardiac Sampling and Pressure, Left Heart, Percutaneous Approach (ICD-10-PCS; 2019-05-03)
PROC: B2111ZZ Fluoroscopy of Multiple Coronary Arteries using Low Osmolar Contrast (ICD-10-PCS; 2019-05-03)
PROC: B2151ZZ Fluoroscopy of Left Heart using Low Osmolar Contrast (ICD-10-PCS; 2019-05-03)
PROC: 4A133BC Monitoring of Arterial Pressure, Coronary, Percutaneous Approach (ICD-10-PCS; 2019-05-03)
DX: I21.4 Non-ST elevation (NSTEMI) myocardial infarction (principal); I25.110 Atherosclerotic heart disease of native coronary artery with unstable angina pectoris; I10 Essential (primary) hypertension; F41.9 Anxiety disorder, unspecified; E87.6 Hypokalemia; I35.0 Nonrheumatic aortic (valve) stenosis; E78.5 Hyperlipidemia, unspecified; Z85.828 Personal history of other malignant neoplasm of skin; Z23 Encounter for immunization
CPT/HCPCS: 36415; 71045; 80048; 80053; 80061; 83690; 83735; 83874; 84100; 84484; 85025; 85027; 85379; 85610; 85730; 93005; 93041; 93306; 93458; 96372

== ENCOUNTER → 2021-05-26 | Outpatient (CLI) | payer BC ==
[~2021-05-26] MED LIST: ASPI-1238 PO; ATOR80TA76 PO; LISI20TA26 PO; METO50TA7 PO; NF-LT10/20 PO; TICA90TA PO
--- NOTE | 2021-05-26 16:16 | Diagnostic Imaging Report ---
INDICATION: Foot pain laterally. EXAMINATION: Right foot, 05/26/2021. FINDINGS: 3 views of the foot. There is spurring along the plantar aspect of the calcaneus. No fractures or dislocations appreciated. IMPRESSION: Chronic findings with no acute osseous abnormality. Dictated by: Dictated on workstation # [id number]
== END ==
LOC: RAD 15:06
PROVIDERS: ATTEND Nurse Practitioner Family
DX: M79.671 Pain in right foot (principal)
CPT/HCPCS: 73630

== ENCOUNTER → 2021-06-04 | Outpatient (CLI) | payer BC ==
--- NOTE | 2021-06-05 09:04 | Diagnostic Imaging Report ---
INDICATION: Routine screening. COMPARISON: 09/30/2016 and 04/30/2011. TECHNIQUE: 2D and 3D bilateral screening mammography was performed with CAD. FINDINGS: Both breasts are heterogeneously dense, limiting the sensitivity of mammography. No mass or malignant-appearing microcalcifications are seen. The axillae are unremarkable. IMPRESSION: No mammographic features suspicious for malignancy are identified. ACR BI-RADS Category 1: Negative. Result letter will be mailed to the patient. Note: At least 10% of breast cancer is not imaged by mammography. Dictated by: Dictated on workstation # [id number]
== END ==
LOC: RAD 14:45
PROVIDERS: ATTEND Nurse Practitioner Family
DX: Z12.31 Encounter for screening mammogram for malignant neoplasm of breast (principal); M79.671 Pain in right foot
CPT/HCPCS: 77063; 77067

== ENCOUNTER → 2021-07-23 | Outpatient (CLI) | payer BC | LOC: CARD 13:30 | PROVIDERS: ATTEND Internal Medicine Cardiovascular Disease | DX: I35.0 Nonrheumatic aortic (valve) stenosis (principal) | CPT/HCPCS: 93306 ==

== ENCOUNTER → 2023-01-20 | Outpatient (CLI) | payer BC ==
--- NOTE | 2023-01-20 15:22 | Diagnostic Imaging Report ---
INDICATION: Routine screening. Comparison is made with prior mammogram from 06/04/2021 and 09/30/2016. 2-D and 3-D bilateral screening mammography was performed with CAD. Both breasts are heterogeneously dense, limiting the sensitivity of mammography. The parenchymal pattern is stable. No mass or malignant-appearing microcalcifications are seen. Axillae are unremarkable. IMPRESSION: No mammographic features suspicious for malignancy are identified. ACR BI-RADS Category 1: Negative. Result letter will be mailed to the patient. Note: At least 10% of breast cancer is not imaged by mammography. BI-RADS Category 1 Dictated by: Dictated on workstation # [id number]
== END ==
LOC: RAD 11:15
PROVIDERS: ATTEND Nurse Practitioner Family
DX: Z12.31 Encounter for screening mammogram for malignant neoplasm of breast (principal)
CPT/HCPCS: 77063; 77067